=== PATIENT | male | born 2000 | race Caucasian/White ===

== ENCOUNTER → 2020-01-09 | Outpatient (CLI) | payer OTHER ==
[~2020-01-09] MED LIST: ASPIR-TRIN325 MG PO; LORCET 5-325 M1 EACH PO; PERCOCET 7.5-31 EAC1 PO
== END ==
LOC: LAB 13:53
PROVIDERS: ATTEND Student in an Organized Health Care Education/Training Program
DX: Z01.812 Encounter for preprocedural laboratory examination (principal); Z20.828 Contact with and (suspected) exposure to other viral communicable diseases

== ENCOUNTER 2020-01-10 15:14 | Day surgery (SDC) | payer OTHER ==
[~2020-01-10] VITALS: Ht 172.7 cm; Wt 93.0 kg
--- NOTE | ~2020-01-10 | O ---
[facility] [place] [address] OPERATIVE REPORT Name: MARIO PRETTY Room #: 150-4 [facility]..#: [id number] Admission: 01/10/20 Attend Phys: Pawan Bynum MD Discharge: Date of : 89 Report #: [id number] THIS REPORT FOR: cc: DARRION - Donna family physician/PCP DARRION - No family physician/PCP Pawan Bynum MD ~ CC: DARRION physician/PCP Pawan Bynum DATE OF SERVICE: 01/10/2020 PREOPERATIVE DIAGNOSIS: Left ankle fibular fracture with syndesmosis injury. POSTOPERATIVE DIAGNOSIS: Left ankle fibular fracture with syndesmosis injury. PROCEDURE: 1. Left ankle fibular open reduction and internal fixation. 2. Left ankle syndesmosis open reduction and internal fixation. SURGEON: Dr. Pawan Bynum. CALIBRATION LABORATORY TECHNICIAN: None. ANESTHESIA: General. ESTIMATED BLOOD LOSS: Minimal. DRAINS: No drains. TOURNIQUET TIME: One hour. DESCRIPTION OF PROCEDURE: The patient was brought to the operating room where he was placed under general anesthesia. Once under adequate general anesthesia, his left lower extremity was prepped and draped in sterile manner. The extremity was elevated, exsanguinated, tourniquet placed to 300 mmHg. A lateral incision over the fibular fracture was made approximately 10 cm in length. This was dissected down through the soft tissue to the fracture site. Bone reduction tenaculums were then utilized to provisionally reduce the fracture and then a one-third tubular plate 7 holes was then placed with 3 bicortical screws proximal and 3 bicortical screws distal to the fracture site. Excellent fixation of the fibular fracture with excellent alignment and rotation was achieved. At this point, then a reduction of the syndesmosis was achieved with a bone reduction tenaculum and subsequent fixation across the syndesmosis was achieved through the very distal screw hole and then a centimeter distal to the plate with 2 TightRopes from [employer]. These were then drilled for and then engaged on the medial cortex and subsequent fixation was then achieved after [facility] [address] [place] [address] OPERATIVE REPORT Name: MARIO PRETTY Room #: 150-4 [facility] M.R.#: [id number] Admission: 01/10/20 Attend Phys: Pawan Bynum MD Discharge: Date of : 89 Report #: [id number] tightening the suture. Once complete, the wound was irrigated copiously and closed with 2-0 Vicryl in subcutaneous tissues and rossy were used for the skin. The wounds were dressed with Xeroform, 4 x 4s, and sterile soft compressive dressing with a short leg cast was placed. Tourniquet was let down at 1 hour. Toes were pink and warm with good capillary refill. There were no complications from the procedure. The patient tolerated the procedure well and went to the recovery room without incident. By: [id number] Pawan Bynum MD /trevon
[~2020-01-10 15:14] MED LIST changes: -ASPIR-TRIN325 MG PO; -PERCOCET 7.5-31 EAC1 PO
[2020-01-10 16:23] VITALS: BP 124/68
[2020-01-10] MEDS ORDERED: PERCOCET 7.5-31 EAC1 PO (17:31)
[2020-01-10] MEDS ORDERED: ASPIR-TRIN325 MG PO (17:32)
[2020-01-10 18:11] VITALS: BP 124/68
== END 2020-01-10 19:00 | disposition home or self-care (01) ==
LOC: TBA 15:14 → OR 15:14 → TBA 15:17 → OR 15:53
PROVIDERS: ATTEND Orthopaedic Surgery Foot and Ankle Surgery
DX: M25.572 Pain in left ankle and joints of left foot (principal); S82.62XA Displaced fracture of lateral malleolus of left fibula, initial encounter for closed fracture; S93.432A Sprain of tibiofibular ligament of left ankle, initial encounter; Z98.890 Other specified postprocedural states; Z79.899 Other long term (current) drug therapy; X58.XXXA Exposure to other specified factors, initial encounter; Y93.89 Activity, other specified; Y92.39 Other specified sports and athletic area as the place of occurrence of the external cause; Y99.8 Other external cause status
CPT/HCPCS: 50010; 50101; 50386; 51412; 56524; 57091; 57180; 57808; 58159; 58292; 58293; 58294; 62110; 62900; 64039; 64043; 70005